=== PATIENT | female | born 1945 | race Asian ===

== ENCOUNTER → 2016-10-14 | Outpatient (CLI) | payer OTHER | LOC: PUL 10:29 → CAT 11:17 | DX: R06.02 Shortness of breath (principal); R94.2 Abnormal results of pulmonary function studies ==

== ENCOUNTER → 2016-10-15 | Outpatient (CLI) | payer OTHER | LOC: CAT 11:18 | DX: R94.2 Abnormal results of pulmonary function studies (principal); R06.00 Dyspnea, unspecified ==

== ENCOUNTER → 2016-11-03 | Outpatient (CLI) | payer OTHER | LOC: PUL 09:42 | DX: R94.2 Abnormal results of pulmonary function studies (principal); R06.00 Dyspnea, unspecified ==

== ENCOUNTER → 2018-04-01 | Outpatient (CLI) | payer OTHER ==
[~2018-04-01] MED LIST: AMLODIPINE BESY10 MG PO; CARVEDILOL25 MG PO; CELLCEPT500 MG PO; COZAAR 50 MG TA50 M2 PO; HYDROCHLOROTHIA25 M2 PO; METFORMIN HCL500 MG PO; MOBIC7.5 MG PO; NORCO 5-325 TA1 EACH PO; PRADAXA150 MG PO; PREDNISONE 10 M10 MG PO; RALOXIFENE HCL60 MG PO; ZETIA10 MG PO
--- NOTE | ~2018-04-01 | SLE ---
[facility] [address] POLYSOMNOGRAPHY STUDY Name: BRIAN AGUERO Room #: REG [facility].#: [id number] Admission: 04/01/18 Attend Phys: Manisha Downs Discharge: Date of : 45 Report #: [id number] THIS REPORT FOR: //name// CC: Marta Dennison DATE OF SERVICE: 04/01/2018 ATTENDING PHYSICIAN: Dr. Alfred Orlando. The patient is 72 years old who weighs 190 pounds and is 60 inches tall with a BMI of 37.1. The patient has been on CPAP at 16 cm water; however, is still having subjective hypersomnia. The patient's download data recently showed an AHI of 8.9. As a result, the patient was referred back to sleep lab for CPAP titration study. During the night of study, the patient spent 454 minutes in bed and slept for 306 minutes with a low sleep efficiency of 67%. Sleep latency was 2.7 minutes with a REM latency of 67.2 minutes. Overall, sleep architecture showed increased stage I and stage 2 sleep, reduced N3 sleep and reduced REM sleep. During the night of study, the patient had PLM index of 2.5 per hour with an arousal index of 1.6 per hour. EKG monitoring revealed an average heart rate of 63 beats per minute with a maximum of 82 beats per minute. No sustained arrhythmias were observed. The patient was started on CPAP at 12 cm water and titrated up to 19 cm water. However, best results were seen at a CPAP pressure of 17 cm of water. The patient had supine as well as REM sleep. The patient slept for 70 minutes. The patient's AHI was reduced to 3.4 per hour and oxygen saturations remained above 92%. IMPRESSION: 1. Sleep apnea diagnosed by previous sleep study. 2. No clinically significant periodic limb movements of sleep. 3. Reduced sleep efficiency resulting from sleep maintenance insomnia. The patient's sleep efficiency was 67%. RECOMMENDATIONS: 1. CPAP at 17 cm water completely eliminated the patient's sleep apnea and should be used on a nightly basis. 2. Follow up in 4-6 weeks to assess compliance with CPAP and to document clinical improvement. If the patient's hypersomnia persists, then consider other disorders which may be contributing to hypersomnia such as insomnia or [facility] [address] [place] [address] POLYSOMNOGRAPHY STUDY Name: LACIBRIAN CABRERA DOROTHEA Room #: REG [facility]#: [id number] Admission: 04/01/18 Attend Phys: Manisha Downs Discharge: Date of : 45 Report #: [id number] medication effect. 3. Avoid [employer]ING [employer] depressants. 4. Cautioned regarding driving until the patient's hypersomnia is resolved with the above recommendations. <ELECTRONICALLY SIGNED> By: Sylvester Tena MD 04/04/18 1538 [id number] Sylvester Tena MD /estephania
== END ==
LOC: SLEEPLAB 20:14
DX: G47.33 Obstructive sleep apnea (adult) (pediatric) (principal); G47.10 Hypersomnia, unspecified; R06.00 Dyspnea, unspecified

== ENCOUNTER → 2018-04-03 | Outpatient (CLI) | payer OTHER ==
--- NOTE | ~2018-04-03 | 2DMMODE ---
[facility] [place] [address] 2 D/M-MODE ECHOCARDIOGRAM Name: LACIBRIAN CABRERA DOROTHEA Room #: REG [facility].#: [id number] Admission: 04/03/18 Attend Phys: Manisha Jameson Discharge: Date of : 45 Date of Service: 04/03/18 1010 Report #: [id number] THIS REPORT FOR: //name// APPROVED REPORT Study performed: 04/03/2018 09:13:20 EXAM: Comprehensive 2D, Doppler, and color-flow Echocardiogram Patient Location: Out-Patient Status: routine BSA: 1.80 HR: 66 bpm Rhythm: NSR Other Information Study Quality: Adequate Indications Short of breath, pulmonary htn. Hx: CABG, AVR. 2D Dimensions RVDd: 39.14 mm IVSd: 14.42 (7-11mm) LVOT Diam: 19.43 (18-24mm) LVDd: 42.73 mm PWd: 9.60 (7-11mm) Ascending Ao: 33.22 (22-36mm) LVDs: 25.16 (25-40mm) Aortic Root: 31.10 mm Volumes Left Atrial Volume (Systole) Single Plane 4CH: 53.37 mL Single Plane 2CH: 51.83 mL LA ESV Index: 32.00 mL/m2 Aortic Valve AoV Peak Diogenes.: 3.00 m/s AO Peak Gr.: 36.12 mmHg LVOT Max P.14 mmHg AO Mean Gr.: 22.16 mmHg AO V2 Mean: 2.26 m/s LVOT Max V: 1.02 m/s AO V2 VTI: 78.16 cm TARIQ Vmax: 1.00 cm2 Mitral Valve E/A Ratio: 0.9 [facility] [place] [address] [place] [address] 2 D/M-MODE ECHOCARDIOGRAM Name: BRIAN AGUERO Room #: [facility].#: [id number] Admission: 04/03/18 Attend Phys: Manisha Jameson Discharge: Date of : 45 Date of Service: 04/03/18 1010 Report #: [id number] MV Decel. Time: 241.43 ms MV E Max Diogenes.: 1.01 m/s MV A Diogenes.: 1.13 m/s MV PHT: 70.02 ms IVRT: 87.66 ms Pulmonary Valve PV Peak Diogenes.: 1.20 m/s PV Peak Gr.: 5.73 mmHg Pulmonary Vein P Vein S: 0.55 m/s P Vein A: 0.26 m/s P Vein D: 0.61 m/s P Vein A Dur.: 124.6 msec P Vein S/D Ratio: 0.90 Tricuspid Valve TR Peak Diogenes.: 2.96 m/s RAP Estimate: 10.00 mmHg TR Peak Gr.: 35.09 mmHg PA Pressure: 45.00 mmHg Left Ventricle The left ventricle is normal size. There is normal LV segmental wall motion. Mild basal septal hypertrophy is present. Left ventricular systolic function is normal. LVEF is 60-65%. Mild diastolic dysfunction is present (impaired relaxation pattern). Right Ventricle The right ventricle is normal size. The right ventricular systolic function is normal. Atria The left atrium size is normal. The right atrium size is normal. Aortic Valve A bioprosthetic porcine aortic valve is present. Peak gradient of 36mmHg and a mean of 22mmHg. Trace aortic regurgitation. Mitral Valve Moderate mitral annular calcification. Mild mitral regurgitation. No evidence of mitral valve stenosis. Tricuspid Valve The tricuspid valve is normal in structure. Mild to moderate tricuspid regurgitation. Estimated PAP is 40-45mmHg. Pulmonic Valve [facility] [address] [place] [address] 2 D/M-MODE ECHOCARDIOGRAM Name: BRIAN AGUERO Room #: REG [facility] Efrain#: [id number] Admission: 04/03/18 Attend Phys: Manisha Jameson Discharge: Date of : 45 Date of Service: 04/03/18 1010 Report #: [id number] Pulmonic valve is not well visualized. Trace pulmonic regurgitation. Great Vessels The aortic root is normal in size. The ascending aorta is normal in size. IVC is dilated and collapses >50% with inspiration. Pericardium There is no pericardial effusion. <Conclusion> Left ventricular systolic function is normal. There is normal LV segmental wall motion. LVEF is 60-65%. Mild diastolic dysfunction A bioprosthetic porcine aortic valve is present. Peak gradient of 36mmHg and a mean of 22mmHg. Trace aortic regurgitation. Moderate mitral annular calcification. Mild mitral regurgitation. Mild to moderate tricuspid regurgitation. Estimated pulmonary artery pressure of 40-45mmHg. There is no pericardial effusion. <ELECTRONICALLY SIGNED> By: Sony Pena MD, FACC 04/03/18 1010 1010 1010 Sony Pena MD, FACC /INF
== END ==
LOC: CV 08:48
DX: I08.1 Rheumatic disorders of both mitral and tricuspid valves (principal); G47.33 Obstructive sleep apnea (adult) (pediatric)

== ENCOUNTER → 2018-11-23 | Outpatient (CLI) | payer OTHER ==
--- NOTE | 2018-11-27 15:42 | SLE ---
[facility] [place] [address] POLYSOMNOGRAPHY STUDY Name: BRIAN AGUERO Room #: REG [facility]#: [id number] Admission: 11/23/18 ������������������ Attend Phys: Sylvester Tena MD Discharge: ������������������ Date of : 45 Report #: [id number] THIS REPORT FOR: //name// CC: Sylvester Paulino DATE OF SERVICE: 11/23/2018 ATTENDING PHYSICIAN: Dr. Alfred Orlando. The patient is a 73 years old who weighs 180 pounds with a BMI of 36.4. The patient has history of sleep apnea for which she is on CPAP at 17 cm water based on 2018 sleep study. The patient was seen by her field education director and was still having hypersomnolence. Based on the last download data AHI was 11 per hour. No breakdown of AHI was available. The patient was referred back to the Sleep Lab for BiPAP titration study. Review of medications does not reveal any sedative medications. During the night study, the patient spent 365 minutes in bed and slept for 209 minutes with a low sleep efficiency of 57%. Sleep latency was 12.9 minutes with a REM latency of 276 minutes. Overall, sleep architecture showed increased stage 1 and stage 2 sleep, normal N3 sleep and reduced REM sleep, which was 7.6% of the total sleep time. EKG monitoring revealed normal sinus rhythm. Average heart rate 54 beats per minute. No sustained arrhythmias observed. PLMS were seen at an index of 18 per hour and 7 per hour caused EEG arousals. The patient was started on BiPAP at a pressure of 11/6 and the pressure was increased up to 21/15. At that pressure, the patient slept for 39.4 minutes. The patient had no REM sleep. However, supine sleep was seen throughout. The patient's AHI was still 22.8 per hour. Optimal BiPAP pressure was not achieved. The patient's oxygen saturation remained above 88% at this pressure. IMPRESSION: 1. Sleep apnea diagnosed by previous sleep study. 2. Reduced sleep efficiency of only 57%, resulting from sleep maintenance insomnia. It can also contribute to the patient's daytime somnolence. 3. Mild to moderate PLMs. RECOMMENDATIONS: 1. Optimum BiPAP pressure was not achieved on the night of the study. The patient's AHI was still 22 per hour on a BiPAP pressure of 21/15. I would recommend that the patient should be placed on an auto BiPAP with a maximum IPAP [address] [address] POLYSOMNOGRAPHY STUDY Name: BRIAN AGUERO Room #: REG [facility]#: [id number] Admission: 11/23/18 ������������������ Attend Phys: Sylvester Tena MD Discharge: ������������������ Date of : 45 Report #: [id number] pressure of 25 and a minimum EPAP pressure of 17 with a pressure support of 4. 2. The patient should have another download data to assess the efficacy of auto BiPAP and also to assess for clinical improvement. 3. The patient's sleep efficiency was reduced. If she has chronic insomnia that should be addressed and treated according to the etiology. It may be also contributing to the patient's daytime somnolence. 4. Avoid any [employer] depressants. 5. Weight loss is strongly advised. 6. Cautioned regarding driving until the patient's hypersomnia is resolved with the above recommendations. ��������������������������������������������� <ELECTRONICALLY SIGNED> ���������������������������������������� By: Sylvester Tena MD ��������������������������������������������� 11/27/18 1542 2223 Sylvester Tena MD /nt
== END ==
LOC: SLEEPLAB 11:07
DX: G47.33 Obstructive sleep apnea (adult) (pediatric) (principal); G47.61 Periodic limb movement disorder; J98.4 Other disorders of lung; I48.91 Unspecified atrial fibrillation; E11.9 Type 2 diabetes mellitus without complications; E78.5 Hyperlipidemia, unspecified; M81.0 Age-related osteoporosis without current pathological fracture; Z87.891 Personal history of nicotine dependence